=== PATIENT | male | born 1965 | race American Indian/Alaskan Native ===

== ENCOUNTER 2020-01-25 10:09 | Emergency (ER) | payer BC ==
[2020-01-25] MEDS ORDERED: FLU Vacc QS2019-20(6MOS+)/PF 60 MCG/0.5 ML SYRINGE IM ONE (10:45)
--- NOTE | 2020-01-25 10:47 | EDM.PDOC ---
ED HPI GENERAL MEDICAL PROBLEM - General Chief Complaint: Respiratory Problem Stated Complaint: RESPIRATORY/COUGH/RECENT TRAVEL Time Seen by Provider: 01/25/20 10:30 Source of Information: Reports: Patient History Limitations: Reports: No Limitations - History of Present Illness INITIAL COMMENTS - FREE TEXT/NARRATIVE: 54-year-old male presents to the ED for evaluation mostly at the request of his family members. She became ill about 5 days ago and he just returned home from the [facility] where he was on vacation. He wore a mask on the airplane and continues to wear a mask. He states he had nasal congestion and a bit of a cough but it is getting better. No definitive fever or chills. He has not had his flu shot and therefore his flu shot will be updated today. Concern was whether or not he is could have contracted the novel coronavirus. However clinically he is getting better not worse. Onset: Sudden Onset Date: 01/19/20 Duration: Day(s): Location: Reports: Face (Is getting better.), Chest Quality: Reports: Other (No pain) Severity: Mild Improves with: Reports: Other (In better with time) Worsens with: Reports: None Context: Reports: Other (Developed an upper respiratory tract infection while he was in the [facility] and recently traveled home by air. Concern is for coronavirus infection.). Denies: Activity, Exercise, Lifting, Sick Contact, Trauma Associated Symptoms: Reports: Fever/Chills. 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 [No Known Home Meds] 01/25/20 [History] Past Medical History HEENT History: Reports: Impaired Vision Other HEENT History: wears eyeglasses. 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 Social & Family History - Tobacco Use Smoking Status *Q: Never Smoker Second Hand Smoke Exposure: No - Caffeine Use Caffeine Use: Reports: Coffee - Alcohol Use Days Per Week of Alcohol Use: 7 Number of Drinks Per Day: 4 Total Drinks Per Week: 28 - Recreational Drug Use Recreational Drug Use: No - Living Situation & Occupation Living situation: Reports: Single Occupation: Employed ED ROS GENERAL - Review of Systems Review Of Systems: See Below Constitutional: Reports: Fever. Denies: Chills, Malaise, Weakness, Fatigue, Decreased Appetite, Weight Loss HEENT: Reports: Sinus Problem (Mild nasal congestion but getting better), Throat Pain (Was a little sore initially but not now) Respiratory: Reports: Cough (Cough). Denies: Shortness of Breath ( but was never really that productive and is getting much better.), Wheezing, Pleuritic Chest Pain, Sputum, Hemoptysis Cardiovascular: Reports: No Symptoms Endocrine: Reports: No Symptoms GI/Abdominal: Reports: No Symptoms : Reports: No Symptoms Musculoskeletal: Reports: No Symptoms Skin: Reports: No Symptoms Neurological: Reports: No Symptoms Psychiatric: Reports: No Symptoms Hematologic/Lymphatic: Reports: No Symptoms Immunologic: Reports: No Symptoms ED EXAM, GENERAL - Physical Exam Exam: See Below Exam Limited By: No Limitations General Appearance: Alert, WD/WN, No Apparent Distress, Other (Temperature is 36.4. Heart rate is 70 and sinus respiratory to 16 pulse ox is 98% on room air BP 132/87) Eye Exam: Bilateral Eye: Normal Inspection Ears: Normal TMs Throat/Mouth: Normal Inspection, Normal Lips, Normal Teeth, Normal Oropharynx Head: Atraumatic, Normocephalic Neck: Normal Inspection, Supple, Non-Tender, Full Range of Motion. No: Lymphadenopathy (L), Lymphadenopathy (R) Respiratory/Chest: No Respiratory Distress, Lungs Clear, Normal Breath Sounds, No Accessory Muscle Use Cardiovascular: Normal Peripheral Pulses, Regular Rate, Rhythm, No Edema, No Gallop, No Murmur, No Rub Peripheral Pulses: 3+: Posterior Tibial (L), Posterior Tibial (R), Dorsalis Pedis (L), Dorsalis Pedis (R) GI/Abdominal: Normal Bowel Sounds, Soft, Non-Tender, No Organomegaly, No Mass, Pelvis Stable, Rebound Back Exam: Normal Inspection, Full Range of Motion. No: CVA Tenderness (L), CVA Tenderness (R) Extremities: Normal Inspection, Normal Range of Motion, Non-Tender, No Pedal Edema Neurological: Alert, Oriented, CN II-XII Intact, Normal Cognition, Normal Gait Course - Vital Signs Last Recorded V/S: Last Vital Signs Temp 36.9 C 01/25/20 11:00 Pulse 72 01/25/20 11:00 Resp 16 01/25/20 11:00 BP 136/93 H 01/25/20 11:00 Pulse Ox 98 01/25/20 11:00 - Orders/Labs/Meds Orders: Active Orders 24 hr Category Date Time Status Influenza Vaccine Charge [RC] .DISCHARGE Care 01/25/20 10:37 Active Meds: Medications Discontinued Medications Generic Name Dose Route Start Last Admin Trade Name Kishor PRN Reason Stop Dose Admin Influenza Virus Vaccine 1 each 01/25/20 10:37 Pharmacy To Dose - Influenza Vaccine IM 01/25/20 10:38 ONETIME ONE Influenza Virus Vaccine 60 mcg 01/25/20 10:45 01/25/20 10:49 Fluzone Quad Syringe IM 01/25/20 10:46 60 mcg .ONCE ONE Administration - Radiology Interpretation Free Text/Narrative:: 54-year-old male presents to the ED for assessment of upper respiratory tract infection that he contracted overseas in the [facility] about 5 days ago. He presents to the ED at the request of his family concerned that he may have contracted coronavirus. However here he clinically has had a upper respiratory tract infection which is viral in etiology and is getting better. He has minor nasal congestion at this time but ears nose and throat were otherwise normal and he states his cough is getting much better. Lungs were clear to all station percussion. Patient reassured at this point time there are no signs or symptoms of serious infection. He will monitor and if he develops increased trouble breathing shortness of breath he will report to medical facility. At this time conservative treatment advised Departure - Departure Time of Disposition: 10:44 Disposition: Home, Self-Care 01 Condition: Fair Clinical Impression: Viral upper respiratory tract infection - Discharge Information *PRESCRIPTION DRUG MONITORING PROGRAM REVIEWED*: Not Applicable *COPY OF PRESCRIPTION DRUG MONITORING REPORT IN PATIENT DAYANNA: Not Applicable Instructions: Viral Respiratory Infection, [id number] Referrals: PCP,None [Primary Care Provider] - Forms: ED Department Discharge Additional Instructions: Evaluation in the emergency room today in regards to upper respiratory tract infection that you contracted approximately 5 days ago and recently have returned from the [facility] from vacation. Uncertain of course is for potential coronavirus infection which is the cause of most common colds. However the recent outbreak of a novel coronavirus infection in [place] and that is spreading around the world is certainly evident. This point time I agree with you that you have a common cold and it is slowly getting better. Things to watch out for would be worsening shortness of breath and cough and usually fever but not always. Have about another week to know for sure that you are in the clear. At this point time the chances of coming down with coronavirus infection is still very low. If you do develop worsening symptoms you need to return to health care center they can offer aggressive management of the airway. At this time no other treatment is advised Sepsis Event Note - Evaluation Sepsis Screening Result: No Definite Risk - Focused Exam Vital Signs: Vital Signs Temp Pulse Resp BP Pulse Ox 01/25/20 11:00 36.9 C 72 16 136/93 H 98 01/25/20 10:20 36.4 C 70 16 132/87 98 Date Exam was Performed: 01/25/20 Time Exam was Performed: 12:47 - My Orders Last 24 Hours: My Active Orders 01/25/20 10:37 Influenza Vaccine Charge [RC] .DISCHARGE - Assessment/Plan Last 24 Hours: My Active Orders 01/25/20 10:37 Influenza Vaccine Charge [RC] .DISCHARGE
== END 2020-01-25 11:00 | disposition home or self-care (01) ==
LOC: JD.ED 10:09
DX: J06.9 Acute upper respiratory infection, unspecified (principal); Z23 Encounter for immunization
CPT/HCPCS: 90686; 99282; 99283-25; G0008